=== PATIENT | male | born 1960 | race Caucasian/White ===

== ENCOUNTER 2019-01-10 07:25 | Emergency (ER) | payer BC ==
[2019-01-10 07:30] VITALS: TEMP 98.3; BMI 29.8
[2019-01-10] MEDS ORDERED: ACETAMINOPHEN 325 MG TABLET (FP) PO ONE (07:44)
--- NOTE | 2019-01-10 07:45 | PDOC ---
History of Present Illness - General Chief Complaint: Pain Stated Complaint: PAIN Time Seen by Provider: 01/10/19 07:35 History Source: Patient Exam Limitations: No Limitations Past History - Past Medical History Allergies/Adverse Reactions: Allergies Allergy/AdvReac Type Severity Reaction Status Date / Time Penicillins Allergy Verified 01/10/19 07:29 Home Medications: Ambulatory Orders Sulfamethoxazole/Trimethoprim [Bactrim Ds -] 1 tab PO BID #14 tablet 01/10/19 metroNIDAZOLE [Flagyl -] 500 mg PO TID #21 tablet 01/10/19 COPD: No Hypercholesterolemia: Yes Kidney Stones: Yes - Suicide/Smoking/Psychosocial Hx Smoking History: Never smoked Abd/GI Specific PMHX - Complaint Specific PMHX Colitis: No Diverticulitis: No Gall Bladder Disease: No GERD: No Hepatitis: No Irritable Bowel Synd (IBS): No Pancreatitis: No GI Ulcer Disease: No *Physical Exam - Vital Signs Last Vital Signs Temp Pulse Resp BP Pulse Ox 98.3 F 78 18 168/100 99 01/10/19 07:27 01/10/19 07:27 01/10/19 07:27 01/10/19 07:27 01/10/19 07:27 - Physical Exam General Appearance: No: Apparent Distress Respiratory/Chest: positive: Lungs Clear, Normal Breath Sounds. negative: Respiratory Distress Cardiovascular: positive: Regular Rhythm, Regular Rate, S1, S2. negative: Murmur Gastrointestinal/Abdominal: positive: Normal Bowel Sounds, Soft. negative: Tender, Distended, Guarding, Rebound Musculoskeletal: negative: CVA Tenderness Integumentary: positive: Normal Color Neurologic: positive: Alert, Normal Mood/Affect Moderate Sedation - Procedure Monitoring Vital Signs: Procedure Monitoring Vital Signs Temperature 98.3 F 01/10/19 07:27 Pulse Rate 78 01/10/19 07:27 Respiratory Rate 18 01/10/19 07:27 Blood Pressure 168/100 01/10/19 07:27 O2 Sat by Pulse Oximetry (%) 99 01/10/19 07:27 ED Treatment Course - LABORATORY CBC & Chemistry Diagram: 01/10/19 08:33 01/10/19 08:33 Medical Decision Making - Medical Decision Making 58 y/o M with hx of kidney stones, HLD presents with sharp LLQ pain x 3-4 days, worse today. Had 1 episode of loose stool yesterday, but not having currently. Pain does not feel like kidney stones. Was taking Tylenol at home with relief, but states wasn't helping today. Denies fever, sob, cp, n/v, black or bloody stools, dysuria, hematuria, increased urinary frequency or urgency. LLQ pain: consider diverticulitis/colitis, kidney stones (though not suspicious given how comfortable patient appears) Plan: Labs, UA, Tylenol, reassess 01/10/19 07:45 Labs and UA unremarkable Will get CT A/P to r/o any acute pathology 01/10/19 09:57 CT raises concern for possible mild acute diverticulitis vs epiploic appendagitis Discussed findings with Dr. Page - recommend starting abx Will start on bactrim and flagyl Findings d/w patient stable for dc 01/10/19 12:51 *DC/Admit/Observation/Transfer Diagnosis at time of Disposition: Diverticulitis, Epiploic appendagitis - Discharge Dispostion Disposition: HOME Condition at time of disposition: Stable Decision to Admit order: No - Prescriptions Prescriptions: metroNIDAZOLE [Flagyl -] 500 mg PO TID #21 tablet Sulfamethoxazole/Trimethoprim [Bactrim Ds -] 1 tab PO BID #14 tablet - Referrals Referrals: Phil Barfield MD [Primary Care Provider] - 2 Days - Patient Instructions Printed Discharge Instructions: DI for Diverticulitis Additional Instructions: Thank you for choosing [facility]. It was a pleasure taking care of you. Your CT scan raises concern for possible diverticulitis vs inflammation of appendages around colon (epiploic appendagitis) You were started on antibiotics - Bactrim and Flagyl Takes meds as prescribed Take Motrin 600 mg every 4 hours as needed for pain Follow-up with your PCP in 2-3 days. Return to the Emergency Department if your symptoms worsen or persist, you have fever, shortness of breath, chest pain, severe abdominal pain, vomiting, black or bloody stools or other concerning symptoms. - Post Discharge Activity
[2019-01-10] MEDS ORDERED: ACETAMINOPHEN 325 MG TABLET (FP) ONE (08:15)
[2019-01-10 08:56] LABS: URINE APPEARANCE CLEAR; URINE BILIRUBIN NEGATIVE (<2.0 mg/dL); URINE COLOR LTYELLOW; URINE GLUCOSE (UA) NEGATIVE (NEGATIVE); URINE KETONE NEGATIVE (NEGATIVE); URINE LEUK ESTERASE NEGATIVE (NEGATIVE); URINE NITRITE NEGATIVE (NEGATIVE); URINE PROTEIN NEGATIVE (NEGATIVE); URINE UROBILINOGEN NEGATIVE mg/dL (0.2-1.0)
[2019-01-10 08:59] LABS: BASO % 0.9 % (0-2.0); EOS % 5.4 % (0-4.5); HEMATOCRIT 42.5 % (35.4-49); HEMOGLOBIN 14.8 GM/dL (11.7-16.9); LYMPH % 21.6 % (8-40); MCH 30.3 pg (25.7-33.7); MCHC 34.7 g/dl (32.0-35.9); MEAN CELL VOLUME 87.2 fl (80-96); MEAN PLT VOLUME 7.9 fl (7.5-11.1); MONO % 6.4 % (3.8-10.2); NEUT % 65.7 % (42.8-82.8); PLATELET COUNT 322 K/MM3 (134-434); RBC 4.87 M/mm3 (4.00-5.60); RDW 13.6 % (11.9-15.9); WHITE BLOOD COUNT 8.1 K/mm3 (4.0-10.0)
[2019-01-10 09:13] LABS: ANION GAP 7 MMOL/L (8-16); BLOOD UREA NITROGEN 13 mg/dL (7-18); CALCIUM 8.7 mg/dL (8.5-10.1); CHLORIDE 103 mmol/L (98-107); CO2 28 mmol/L (21-32); CREATININE 0.9 mg/dL (0.55-1.3); GLUCOSE,RANDOM 119 mg/dL (74-106); POTASSIUM 3.8 mmol/L (3.5-5.1); SODIUM 138 mmol/L (136-145)
[2019-01-10] MEDS ORDERED: IBUPROFEN 600 MG TABLET (FP) PO ONE ×2 (12:50→12:56)
[2019-01-10] MEDS ORDERED: SULFAMETHOXAZOLE/TRIMETHOPRIM 800MG/160MG D.S. TABLET PO ONE (12:50)
[2019-01-10] MEDS ORDERED: metroNIDAZOLE 250 MG TABLET PO ONE (12:50)
[2019-01-10] MEDS ORDERED: metroNIDAZOLE 250 MG TABLET ONE (12:56)
[2019-01-10] MEDS ORDERED: SULFAMETHOXAZOLE/TRIMETHOPRIM 800MG/160MG D.S. TABLET ONE (12:57)
[2019-01-10 13:22] VITALS: BP 143/98; PULSE 90
== END 2019-01-10 13:22 | disposition home or self-care (01) ==
LOC: JER 07:25
DX: K57.92 Diverticulitis of intestine, part unspecified, without perforation or abscess without bleeding (principal); K63.89 Other specified diseases of intestine; E78.5 Hyperlipidemia, unspecified; Z87.442 Personal history of urinary calculi
CPT/HCPCS: 36415; 74177-TC; 80048; 81003; 85025; 99282-25; C1887

== ENCOUNTER 2020-11-26 08:18 | Emergency (ER) | payer BC ==
[2020-11-26 08:26] VITALS: BP 173/94; PULSE 87; TEMP 97.9; BMI 31.1
[2020-11-26] MEDS ORDERED: NAPROXEN 500 MG TABLET PO ONE (08:55)
[2020-11-26] MEDS ORDERED: LIDOCAINE 5% TOPICAL PATCH TP ONE (08:55)
[2020-11-26] MEDS ORDERED: LIDOCAINE 5% TOPICAL PATCH ONE (09:06)
[2020-11-26] MEDS ORDERED: NAPROXEN 500 MG TABLET ONE (09:06)
[2020-11-26] MEDS ORDERED: LIDOCAINE PATCH REMOVAL MC ONE (22:00)
== END 2020-11-26 10:02 | disposition home or self-care (01) ==
LOC: JER 08:18
DX: M19.90 Unspecified osteoarthritis, unspecified site (principal); M25.511 Pain in right shoulder
CPT/HCPCS: 73030-TC-RT-FY; 99284-25